=== PATIENT | female | born 1975 | race African-American/Black ===

== ENCOUNTER 2019-10-12 22:17 | Inpatient (IN) | payer OTHER ==
[~2019-10-12] VITALS: Ht 175.3 cm; Wt 71.7 kg
[2019-10-12 22:45] VITALS: BP 130/80
[2019-10-12] MEDS ORDERED: Morphine Sulfate 4mg/ml Inj (IV USE ONLY) IVP ONE (22:45)
[2019-10-12 23:25] LABS: ANION GAP 8 mmol/L (5-15); BLOOD UREA NITROGEN 13 mg/dL (7-18); CALCIUM 8.8 MG/DL (8.5-10.1); CARBON DIOXIDE 25 MMOL/L (21-32); CHLORIDE 104 MMOL/L (98-107); CREATININE 1.1 MG/DL (0.55-1.30); HEMATOCRIT 37.8 % (37.0-47.0); HEMOGLOBIN 12.2 G/DL (12.0-16.0); MEAN CORPUSCULAR VOLUME 100 FL (80-99); PLATELET COUNT 211 K/UL (150-450); POTASSIUM 4.5 MMOL/L (3.5-5.1); RED BLOOD COUNT 3.78 M/UL (4.20-5.40); RED CELL DISTRIBUTION WIDTH 12.3 % (11.6-14.8); SODIUM 137 MMOL/L (136-145); WHITE BLOOD COUNT 15.3 K/UL (4.8-10.8)
[2019-10-12 23:32] LABS: ALANINE AMINOTRANSFERASE 22 U/L (12-78); ALBUMIN 3.7 G/DL (3.4-5.0); ALKALINE PHOSPHATASE 36 U/L (46-116); ASPARTATE AMINO TRANSFERASE 17 U/L (15-37); BILIRUBIN,TOTAL 0.6 MG/DL (0.2-1.0)
--- NOTE | 2019-10-12 23:51 | Emergency Room Report ---
History of Present Illness General Chief Complaint: Abdominal Pain Source: Patient Present Illness HPI 44-year-old female presents with abdominal pain. Status post uterine artery embolization today. Pain is throbbing, 10 out of 10, nonradiating. Notes nausea, denies vomiting. Denies fevers or chills. Denies any diarrhea. States that she did test positive for COVID antibody in August. Has not had symptoms since. Denies fevers or chills or cough. No other aggravating relieving factors. Denies any other associated symptoms Allergies: Coded Allergies: No Known Allergies (Unverified , 10/12/19) COVID-19 Screening Contact w/high risk pt: No Recent Travel to affected area: No Experienced COVID-19 symptoms?: No COVID-19 Testing performed RECREATIONAL SPECIALIST: Yes COVID-19 Screening: Positive COVID-19 COVID-19 Testing Source: 09/05 positive antibody Patient History Past Medical History: none Past Surgical History: none Pertinent Family History: none Social History: Denies: smoking, alcohol use, drug use Now: No : 0 Para: 0 Immunizations: UTD Reviewed Nursing Documentation: PMH: Agreed; PSxH: Agreed Nursing Documentation-PMH Past Medical History: No Stated History Review of Systems All Other Systems: negative except mentioned in HPI Physical Exam Vital Signs Date Time Temp Pulse Resp B/P (MAP) Pulse Ox O2 Delivery O2 Flow Rate FiO2 10/12/19 22:42 98.8 63 18 130/80 (97) 98 Room Air Sp02 EP Interpretation: reviewed, normal General Appearance: no apparent distress, alert, GCS 15, non-toxic Head: normocephalic, atraumatic Eyes: bilateral eye normal inspection, bilateral eye PERRL ENT: hearing grossly normal, normal pharynx, no angioedema, normal voice Neck: full range of motion, supple/symm/no masses Respiratory: chest non-tender, lungs clear, normal breath sounds, speaking full sentences Cardiovascular #1: regular rate, rhythm, no edema Cardiovascular #2: 2+ carotid (R), 2+ carotid (L), 2+ radial (R), 2+ radial (L) , 2+ dorsalis pedis (R), 2+ dorsalis pedis (L) Gastrointestinal: normal bowel sounds, soft, non-distended, no guarding, no rebound, tenderness Rectal: deferred Genitourinary: normal inspection, no CVA tenderness Musculoskeletal: back normal, normal range of motion, gait/station normal, non- tender Neurologic: alert, motor strength/tone normal, oriented x3, sensory intact, responsive, speech normal Psychiatric: judgement/insight normal, memory normal, mood/affect normal, no suicidal/homicidal ideation Reflexes: 3+ bicep (R), 3+ bicep (L), 3+ tricep (R), 3+ tricep (L), 3+ knee (R) , 3+ knee (L) Skin: other - see nursing skin note Lymphatic: no adenopathy Medical Decision Making Diagnostic Impression: Primary Impression: Postoperative pain Additional Impression: Status post embolization of uterine artery ER Course Hospital Course 44-year-old female presents to ED with abd pain. s/p uterine artery embolization Differential diagnoses include: postoperative pain, chronic pain, peritoneal signs Clinical course Patient placed on stretcher. In isolation. handyman. After initial history and physical I ordered labs, IV fluids, UA, pain medication and CT scan Labs - noted leukocytosis, Hb/Hct stable. electrolytes ok Pain improved after medication. Abdomen soft with no guarding. Case discussed with Dr. Bernabe and he agreed to accept the patient to his service for further care and support Dr Oshea will consult I feel this is a highly complex case requiring extensive working including EKG/ Rhythm strip, Xray/CT/US, Blood/urine lab work, repeat exams while in ED, and administration of strong opiates/narcotics for pain control, admission to hospital or close patient follow up. Diagnosis -postoperative pain, status post embolization of uterine artery Patient admitted to floor in serious condition Labs Test 10/12/19 23:00 White Blood Count 15.3 K/UL (4.8-10.8) Red Blood Count 3.78 M/UL (4.20-5.40) Hemoglobin 12.2 G/DL (12.0-16.0) Hematocrit 37.8 % (37.0-47.0) Mean Corpuscular Volume 100 FL (80-99) Mean Corpuscular Hemoglobin 32.4 PG (27.0-31.0) Mean Corpuscular Hemoglobin Concent 32.3 G/DL (32.0-36.0) Red Cell Distribution Width 12.3 % (11.6-14.8) Platelet Count 211 K/UL (150-450) Mean Platelet Volume 9.0 FL (6.5-10.1) Neutrophils (%) (Auto) % (45.0-75.0) Lymphocytes (%) (Auto) % (20.0-45.0) Monocytes (%) (Auto) % (1.0-10.0) Eosinophils (%) (Auto) % (0.0-3.0) Basophils (%) (Auto) % (0.0-2.0) Sodium Level 137 MMOL/L (136-145) Potassium Level 4.5 MMOL/L (3.5-5.1) Chloride Level 104 MMOL/L (98-107) Carbon Dioxide Level 25 MMOL/L (21-32) Anion Gap 8 mmol/L (5-15) Blood Urea Nitrogen 13 mg/dL (7-18) Creatinine 1.1 MG/DL (0.55-1.30) Estimat Glomerular Filtration Rate > 60 mL/min (>60) Glucose Level 137 MG/DL (74-106) Calcium Level 8.8 MG/DL (8.5-10.1) Total Bilirubin 0.6 MG/DL (0.2-1.0) Aspartate Amino Transf (AST/SGOT) 17 U/L (15-37) Alanine Aminotransferase (ALT/SGPT) 22 U/L (12-78) Alkaline Phosphatase 36 U/L (46-116) Total Protein 7.4 G/DL (6.4-8.2) Albumin 3.7 G/DL (3.4-5.0) Globulin 3.7 g/dL Albumin/Globulin Ratio 1.0 (1.0-2.7) Lipase 169 U/L (73-393) Last Vital Signs Date Time Temp Pulse Resp B/P (MAP) Pulse Ox O2 Delivery O2 Flow Rate FiO2 10/12/19 22:42 98.8 63 18 130/80 (97) 98 Room Air Status: improved Disposition: ADMITTED INPATIENT Condition: Serious Referrals: NON PHYSICIAN (PCP) Frederic Latham MD Oct 12, 2019 23:51
[2019-10-13] VITALS: BP 144/75
[2019-10-13] MEDS ORDERED: HYDROmorphone 1mg/ml Carpuject IVP PRN (00:45)
[2019-10-13] MEDS ORDERED: Potassium Chloride 20 MEQ in Dextrose 5%/Lactated Ringer's 1,000 ML IV SCH (03:00)
[2019-10-13] MEDS: ceFAZolin sod 1 GM in D5W 55 ML IVPB SCH ×3 (03:45→18:22)
[2019-10-13 04:00] VITALS: BP 98/47
[2019-10-13] MEDS ORDERED: AUGMENTIN 875-1 EAC1 ORAL (04:09)
[2019-10-13] MEDS ORDERED: TRAMADOL HCL50 MG ORAL (04:09)
[2019-10-13] MEDS ORDERED: ZOFRAN ODT8 MG ORAL (04:09)
[2019-10-13] MEDS ORDERED: PERCOCET1 TAB ORAL (04:09)
[2019-10-13 05:31] LABS: BASOPHILS % (AUTO) 0.3 % (0.0-2.0); EOSINOPHILS % (AUTO) 0.1 % (0.0-3.0); HEMATOCRIT 34.7 % (37.0-47.0); LYMPHOCYTES % (AUTO) 11.4 % (20.0-45.0); MEAN CORPUSCULAR VOLUME 101 FL (80-99); MONOCYTES % (AUTO) 4.9 % (1.0-10.0); NEUTROPHILS % (AUTO) 83.3 % (45.0-75.0); PLATELET COUNT 226 K/UL (150-450); RED BLOOD COUNT 3.44 M/UL (4.20-5.40); RED CELL DISTRIBUTION WIDTH 12.6 % (11.6-14.8); WHITE BLOOD COUNT 13.4 K/UL (4.8-10.8)
[2019-10-13 05:55] LABS: ALANINE AMINOTRANSFERASE 19 U/L (12-78); ALBUMIN/GLOBULIN RATIO 0.9 (1.0-2.7); ALKALINE PHOSPHATASE 29 U/L (46-116); ANION GAP 10 mmol/L (5-15); ASPARTATE AMINO TRANSFERASE 19 U/L (15-37); BILIRUBIN,TOTAL 0.7 MG/DL (0.2-1.0); BLOOD UREA NITROGEN 13 mg/dL (7-18); CALCIUM 7.9 MG/DL (8.5-10.1); CARBON DIOXIDE 25 MMOL/L (21-32); CHLORIDE 105 MMOL/L (98-107); CREATININE 0.9 MG/DL (0.55-1.30); POTASSIUM 4.2 MMOL/L (3.5-5.1); SODIUM 139 MMOL/L (136-145)
[2019-10-13 07:51] LABS: APPEARANCE,URINE CLEAR; BILIRUBIN, URINE NEGATIVE (NEGATIVE); GLUCOSE, URINE (UA) NEGATIVE (NEGATIVE); KETONES,URINE 3+ (NEGATIVE); LEUKOCYTE ESTERASE ,URINE NEGATIVE (NEGATIVE); NITRITE,URINE NEGATIVE (NEGATIVE); PH,URINE 5 (4.5-8.0); PROTEIN,URINE 1+ (NEGATIVE); UROBILINOGEN,URINE NORMAL MG/DL (0.0-1.0)
[2019-10-13 07:52] LABS: COLOR,URINE YELLOW
[2019-10-13 08:00] VITALS: BP 95/65
[2019-10-13] MEDS: Docusate 100mg cap ORAL SCH ×2 (10:59→18:22)
[2019-10-13] MEDS: Milk of Magnesia 30ml Ud ORAL SCH (11:15)
[2019-10-13 12:00] VITALS: BP 106/57
--- NOTE | 2019-10-13 12:41 | General Surgery Progress Note ---
General Surgery-Progress Note Subjective Day of Surgery: october 11 Procedure Performed uterine fibroid embolization Symptoms: improved, tolerating diet, voiding well, pain decreased Objective Last 24 Hour Vital Signs Date Time Temp Pulse Resp B/P (MAP) Pulse Ox O2 Delivery O2 Flow Rate FiO2 10/13/19 12:00 98.9 60 18 106/57 (73) 95 10/13/19 09:00 Room Air 10/13/19 08:18 98.2 10/13/19 08:00 98.2 61 18 95/65 (75) 95 10/13/19 04:00 98.1 63 17 98/47 (64) 95 10/13/19 01:48 Room Air 10/13/19 00:10 98.8 63 18 130/80 98 Room Air 10/13/19 00:00 98.0 71 18 144/75 (98) 99 10/12/19 23:30 98.8 10/12/19 22:45 63 18 Room Air 10/12/19 22:45 98.8 63 18 130/80 98 Room Air 10/12/19 22:42 98.8 63 18 130/80 (97) 98 Room Air I&O Intake and Output 10/12/19 10/13/19 19:00 07:00 Intake Total 240 ml Balance 240 ml Intake Oral 240 ml # Voids 1 Dressing: dry Wound: clean Drains: none Cardiovascular: RSR Respiratory: clear Abdomen: soft, flat, scaphoid, tenderness, present bowel sounds Laboratory Tests Test 10/12/19 23:00 10/13/19 04:35 10/13/19 07:25 White Blood Count 15.3 K/UL (4.8-10.8) H 13.4 K/UL (4.8-10.8) H Red Blood Count 3.78 M/UL (4.20-5.40) L 3.44 M/UL (4.20-5.40) L Hemoglobin 12.2 G/DL (12.0-16.0) 11.0 G/DL (12.0-16.0) L Hematocrit 37.8 % (37.0-47.0) 34.7 % (37.0-47.0) L Mean Corpuscular Volume 100 FL (80-99) H 101 FL (80-99) H Mean Corpuscular Hemoglobin 32.4 PG (27.0-31.0) H 32.0 PG (27.0-31.0) H Mean Corpuscular Hemoglobin Concent 32.3 G/DL (32.0-36.0) 31.7 G/DL (32.0-36.0) L Red Cell Distribution Width 12.3 % (11.6-14.8) 12.6 % (11.6-14.8) Platelet Count 211 K/UL (150-450) 226 K/UL (150-450) Mean Platelet Volume 9.0 FL (6.5-10.1) 9.5 FL (6.5-10.1) Neutrophils (%) (Auto) % (45.0-75.0) 83.3 % (45.0-75.0) H Lymphocytes (%) (Auto) % (20.0-45.0) 11.4 % (20.0-45.0) L Monocytes (%) (Auto) % (1.0-10.0) 4.9 % (1.0-10.0) Eosinophils (%) (Auto) % (0.0-3.0) 0.1 % (0.0-3.0) Basophils (%) (Auto) % (0.0-2.0) 0.3 % (0.0-2.0) Sodium Level 137 MMOL/L (136-145) 139 MMOL/L (136-145) Potassium Level 4.5 MMOL/L (3.5-5.1) 4.2 MMOL/L (3.5-5.1) Chloride Level 104 MMOL/L (98-107) 105 MMOL/L (98-107) Carbon Dioxide Level 25 MMOL/L (21-32) 25 MMOL/L (21-32) Anion Gap 8 mmol/L (5-15) 10 mmol/L (5-15) Blood Urea Nitrogen 13 mg/dL (7-18) 13 mg/dL (7-18) Creatinine 1.1 MG/DL (0.55-1.30) 0.9 MG/DL (0.55-1.30) Estimat Glomerular Filtration Rate > 60 mL/min (>60) > 60 mL/min (>60) Glucose Level 137 MG/DL (74-106) H 102 MG/DL (74-106) Calcium Level 8.8 MG/DL (8.5-10.1) 7.9 MG/DL (8.5-10.1) L Total Bilirubin 0.6 MG/DL (0.2-1.0) 0.7 MG/DL (0.2-1.0) Aspartate Amino Transf (AST/SGOT) 17 U/L (15-37) 19 U/L (15-37) Alanine Aminotransferase (ALT/SGPT) 22 U/L (12-78) 19 U/L (12-78) Alkaline Phosphatase 36 U/L (46-116) L 29 U/L (46-116) L Total Protein 7.4 G/DL (6.4-8.2) 6.2 G/DL (6.4-8.2) L Albumin 3.7 G/DL (3.4-5.0) 3.0 G/DL (3.4-5.0) L Globulin 3.7 g/dL 3.2 g/dL Albumin/Globulin Ratio 1.0 (1.0-2.7) 0.9 (1.0-2.7) L Lipase 169 U/L (73-393) Urine Color Yellow Urine Appearance Clear Urine pH 5 (4.5-8.0) Urine Specific [place] 1.025 (1.005-1.035) Urine Protein 1+ (NEGATIVE) H Urine Glucose (UA) Negative (NEGATIVE) Urine Ketones 3+ (NEGATIVE) H Urine Blood 1+ (NEGATIVE) H Urine Nitrite Negative (NEGATIVE) Urine Bilirubin Negative (NEGATIVE) Urine Urobilinogen Normal MG/DL (0.0-1.0) Urine Leukocyte Esterase Negative (NEGATIVE) Urine RBC 0-2 /HPF (0 - 2) Urine WBC 0-2 /HPF (0 - 2) Urine Squamous Epithelial Cells Few /LPF (NONE/OCC) Urine Bacteria Few /HPF (NONE) Urine Mucus Moderate /LPF (NONE/OCC) H Urine HCG, Qualitative Negative (NEGATIVE) Additional Comments labs normal. Plan Additional Comments anticipate transition to oral analgesics this pm or tomorrow. ambulate, laxatives. Justino Oshea MD Oct 13, 2019 12:41
--- NOTE | 2019-10-13 13:09 | History and Physical ---
Forrest Perla WHITE SUGAR PAN TANK OPERATOR 10/13/19 1309: History of Present Illness General Date patient seen: Oct 13, 2019 Time patient seen: 12:30 Reason for Hospitalization: Abdominal Pain Present Illness HPI 44 years old female with past medical history of uterine fibroids, status post uterine artery embolization 10/11 , presented to emergency department due to intractable abdominal pain. Pain described as 10 out of 10, nonradiating and of throbbing quality . She denied nausea, vomiting, diarrhea. No fever or chills. She had positive COVID antibody in August , but had no symptoms since that. No fever or chills. No cough. Upon evaluation vital signs were stable. Laboratory work-up revealed leukocytosis WBC 15.3, hemoglobin 12.2, hematocrit 37.8, platelet count 211. Stable electrolytes. BUN 13, creatinine 1.1. Glucose 137. Stable LFT and lipase. Patient admitted for intractable abdominal pain for further management Allergies: Coded Allergies: No Known Allergies (Unverified , 10/12/19) COVID-19 Screening Contact w/high risk pt: No Recent Travel to affected area: No Experienced COVID-19 symptoms?: No Medication History Scheduled Amoxicillin/Potassium Clav 875-125* (Augmentin 875-125 Tablet*), 1 TAB ORAL TWICE A DAY, (Reported) Scheduled PRN Ondansetron Odt* (Zofran Odt*), 4 MG ORAL Q6H PRN for Nausea & Vomiting, ( Reported) Oxycodone/Acetaminophen (Oxycodone-Acetaminophen 5-325), 1 TAB ORAL Q4H PRN for Severe Pain (Pain Scale 7-10), (Reported) Tramadol Hcl* (Ultram*), 50 MG ORAL Q4HR PRN for For Pain, (Reported) Patient History History Provided By: Patient Healthcare decision maker Resuscitation status Full code Advanced Directive on File Review of Systems Constitutional: Reports: no symptoms Eye: Reports: no symptoms ENT: Reports: no symptoms Respiratory: Reports: no symptoms Cardiovascular: Reports: no symptoms Gastrointestinal: Reports: no symptoms Genitourinary: Reports: see HPI Musculoskeletal: Reports: no symptoms Skin: Reports: no symptoms Psychiatric: Reports: no symptoms Neurological: Reports: no symptoms Endocrine: Reports: no symptoms Hematologic/Lymphatic: Reports: no symptoms Physical Exam General Appearance: no apparent distress, alert - awake, oriented x 3 Lines, tubes and drains: peripheral HEENT: normocephalic, atraumatic, anicteric, mucous membranes moist, PERRL Neck: non-tender, supple Respiratory/Chest: lungs clear, normal breath sounds, no respiratory distress, no accessory muscle use Cardiovascular/Chest: normal peripheral pulses, normal rate, no JVD Abdomen: normal bowel sounds, soft - ,ild tenderness on palpation R lower abdomen, no rebound, no guarding Extremities: normal range of motion, non-tender, no calf tenderness, normal capillary refill Skin Exam: warm/dry Neurologic: no motor/sensory deficits, alert Musculoskeletal: normal muscle bulk Last 24 Hour Vital Signs Date Time Temp Pulse Resp B/P (MAP) Pulse Ox O2 Delivery O2 Flow Rate FiO2 10/13/19 12:00 98.9 60 18 106/57 (73) 95 10/13/19 09:00 Room Air 10/13/19 08:18 98.2 10/13/19 08:00 98.2 61 18 95/65 (75) 95 10/13/19 04:00 98.1 63 17 98/47 (64) 95 10/13/19 01:48 Room Air 10/13/19 00:10 98.8 63 18 130/80 98 Room Air 10/13/19 00:00 98.0 71 18 144/75 (98) 99 10/12/19 23:30 98.8 10/12/19 22:45 63 18 Room Air 10/12/19 22:45 98.8 63 18 130/80 98 Room Air 10/12/19 22:42 98.8 63 18 130/80 (97) 98 Room Air Intake and Output 10/12/19 10/13/19 19:00 07:00 Intake Total 240 ml Balance 240 ml Intake Oral 240 ml # Voids 1 Laboratory Tests Test 10/12/19 23:00 10/13/19 04:35 10/13/19 07:25 White Blood Count 15.3 K/UL (4.8-10.8) H 13.4 K/UL (4.8-10.8) H Red Blood Count 3.78 M/UL (4.20-5.40) L 3.44 M/UL (4.20-5.40) L Hemoglobin 12.2 G/DL (12.0-16.0) 11.0 G/DL (12.0-16.0) L Hematocrit 37.8 % (37.0-47.0) 34.7 % (37.0-47.0) L Mean Corpuscular Volume 100 FL (80-99) H 101 FL (80-99) H Mean Corpuscular Hemoglobin 32.4 PG (27.0-31.0) H 32.0 PG (27.0-31.0) H Mean Corpuscular Hemoglobin Concent 32.3 G/DL (32.0-36.0) 31.7 G/DL (32.0-36.0) L Red Cell Distribution Width 12.3 % (11.6-14.8) 12.6 % (11.6-14.8) Platelet Count 211 K/UL (150-450) 226 K/UL (150-450) Mean Platelet Volume 9.0 FL (6.5-10.1) 9.5 FL (6.5-10.1) Neutrophils (%) (Auto) % (45.0-75.0) 83.3 % (45.0-75.0) H Lymphocytes (%) (Auto) % (20.0-45.0) 11.4 % (20.0-45.0) L Monocytes (%) (Auto) % (1.0-10.0) 4.9 % (1.0-10.0) Eosinophils (%) (Auto) % (0.0-3.0) 0.1 % (0.0-3.0) Basophils (%) (Auto) % (0.0-2.0) 0.3 % (0.0-2.0) Sodium Level 137 MMOL/L (136-145) 139 MMOL/L (136-145) Potassium Level 4.5 MMOL/L (3.5-5.1) 4.2 MMOL/L (3.5-5.1) Chloride Level 104 MMOL/L (98-107) 105 MMOL/L (98-107) Carbon Dioxide Level 25 MMOL/L (21-32) 25 MMOL/L (21-32) Anion Gap 8 mmol/L (5-15) 10 mmol/L (5-15) Blood Urea Nitrogen 13 mg/dL (7-18) 13 mg/dL (7-18) Creatinine 1.1 MG/DL (0.55-1.30) 0.9 MG/DL (0.55-1.30) Estimat Glomerular Filtration Rate > 60 mL/min (>60) > 60 mL/min (>60) Glucose Level 137 MG/DL (74-106) H 102 MG/DL (74-106) Calcium Level 8.8 MG/DL (8.5-10.1) 7.9 MG/DL (8.5-10.1) L Total Bilirubin 0.6 MG/DL (0.2-1.0) 0.7 MG/DL (0.2-1.0) Aspartate Amino Transf (AST/SGOT) 17 U/L (15-37) 19 U/L (15-37) Alanine Aminotransferase (ALT/SGPT) 22 U/L (12-78) 19 U/L (12-78) Alkaline Phosphatase 36 U/L (46-116) L 29 U/L (46-116) L Total Protein 7.4 G/DL (6.4-8.2) 6.2 G/DL (6.4-8.2) L Albumin 3.7 G/DL (3.4-5.0) 3.0 G/DL (3.4-5.0) L Globulin 3.7 g/dL 3.2 g/dL Albumin/Globulin Ratio 1.0 (1.0-2.7) 0.9 (1.0-2.7) L Lipase 169 U/L (73-393) Urine Color Yellow Urine Appearance Clear Urine pH 5 (4.5-8.0) Urine Specific [place] 1.025 (1.005-1.035) Urine Protein 1+ (NEGATIVE) H Urine Glucose (UA) Negative (NEGATIVE) Urine Ketones 3+ (NEGATIVE) H Urine Blood 1+ (NEGATIVE) H Urine Nitrite Negative (NEGATIVE) Urine Bilirubin Negative (NEGATIVE) Urine Urobilinogen Normal MG/DL (0.0-1.0) Urine Leukocyte Esterase Negative (NEGATIVE) Urine RBC 0-2 /HPF (0 - 2) Urine WBC 0-2 /HPF (0 - 2) Urine Squamous Epithelial Cells Few /LPF (NONE/OCC) Urine Bacteria Few /HPF (NONE) Urine Mucus Moderate /LPF (NONE/OCC) H Urine HCG, Qualitative Negative (NEGATIVE) Height (Feet): 5 Height (Inches): 9.00 Weight (Pounds): 158 Medications Current Medications Medications (Trade) Dose Ordered Sig/Katelynn Route PRN Reason Start Time Stop Time Status Last Admin Dose Admin Acetaminophen (Tylenol) 650 mg Q6H PRN ORAL Fever >100.4 10/13/19 01:45 11/12/19 01:44 Cefazolin Sodium 1 gm/Dextrose 55 ml @ 110 mls/hr Q8H IVPB 10/13/19 03:00 10/20/19 02:59 10/13/19 10:59 Docusate Sodium (Colace) 100 mg TWICE A DAY ORAL 10/13/19 11:00 11/12/19 10:59 10/13/19 10:59 Hydromorphone HCl (Dilaudid) 1 mg EVERY 3 HOURS PRN IVP MILD PAIN (1-3) 10/13/19 00:45 10/20/19 00:44 Hydromorphone HCl (Dilaudid) 2 mg Q3H PRN IVP SEVERE PAIN (7-10) 10/13/19 00:45 10/20/19 00:44 10/13/19 07:48 Hydromorphone HCl (Dilaudid) 2 mg Q3H PRN IVP Moderate pain (4-6) 10/13/19 01:45 10/20/19 01:44 Magnesium Hydroxide (Mom) 30 ml DAILY ORAL 10/13/19 11:15 11/12/19 11:14 Ondansetron HCl (Zofran) 4 mg Q6H PRN IVP Nausea & Vomiting 10/13/19 00:45 11/12/19 00:44 Oxycodone/ Acetaminophen (Percocet 10/325) 1 tab Q4H PRN ORAL Moderate Pain (Pain Scale 4-6) 10/13/19 11:16 10/20/19 11:15 Potassium Chloride 20 meq/ Dextrose/Lactated Ringer's 1,010 ml @ 150 mls/hr Q6H44M IV 10/13/19 03:00 11/12/19 02:59 10/13/19 08:00 Senna/Docusate Sodium (Dolores-Colace) 1 tab TWICE A DAY ORAL 10/13/19 18:00 11/12/19 17:59 Assessment/Plan Assessment/Plan: ASSESSMENT Postoperative pain s/p uterine artery embolization Uterine fibroids Leukocytosis PLAN OF CARE MS floor IVF pain management empiric abx trend WBC-trending down, remains afebrile CL diet, tolerates, advance to soft diet decrease IVF rate and dc when tolerates diet a/emetic prn OOB as tolerated, IS at the bedside bowel regimen supportive care case discussed and evaluated by supervising physician Lenard Bernabe MD 10/13/19 1515: History of Present Illness General Reason for Hospitalization: Abdominal Pain Present Illness Allergies: Coded Allergies: No Known Allergies (Unverified , 10/12/19) Medication History Scheduled Amoxicillin/Potassium Clav 875-125* (Augmentin 875-125 Tablet*), 1 TAB ORAL TWICE A DAY, (Reported) Scheduled PRN Ondansetron Odt* (Zofran Odt*), 4 MG ORAL Q6H PRN for Nausea & Vomiting, ( Reported) Oxycodone/Acetaminophen (Oxycodone-Acetaminophen 5-325), 1 TAB ORAL Q4H PRN for Severe Pain (Pain Scale 7-10), (Reported) Tramadol Hcl* (Ultram*), 50 MG ORAL Q4HR PRN for For Pain, (Reported) Assessment/Plan Assessment/Plan: Patient seen and examined with WHITE SUGAR PAN TANK OPERATOR. Agree with above A&P as it reflects our joint deliberations. POD1 S/P UFE a/w intractable pain, NV and inability to tolerate PO Pain control/supportive care/anti-emetic therapy/Abx/IS/OOB/DVT Px/WEIGHT LOSS CONSULTANT recs/ dispo planning Perla Clayton NP Oct 13, 2019 13:09 Lenard Bernabe MD Oct 13, 2019 15:15
[2019-10-13] MEDS: Potassium Chloride 20 MEQ in Dextrose 5%/Lactated Ringer's 1,000 ML IV SCH ×2 (14:02→20:50)
[2019-10-13 16:00] VITALS: BP 103/64
[2019-10-13] MEDS: Docusate Sod/Senna tab ORAL SCH (18:22)
[2019-10-13 20:00] VITALS: BP 110/61
[2019-10-14] VITALS: BP 124/74
[2019-10-14 04:00] VITALS: BP 100/63
[2019-10-14] MEDS: ceFAZolin sod 1 GM in D5W 55 ML IVPB SCH (04:00)
[2019-10-14 06:37] LABS: BASOPHILS % (AUTO) 0.9 % (0.0-2.0); HEMATOCRIT 34.2 % (37.0-47.0); HEMOGLOBIN 10.9 G/DL (12.0-16.0); LYMPHOCYTES % (AUTO) 18.8 % (20.0-45.0); MEAN CORPUSCULAR VOLUME 101 FL (80-99); MONOCYTES % (AUTO) 7.6 % (1.0-10.0); NEUTROPHILS % (AUTO) 69.7 % (45.0-75.0); PLATELET COUNT 194 K/UL (150-450); RED BLOOD COUNT 3.38 M/UL (4.20-5.40); RED CELL DISTRIBUTION WIDTH 12.6 % (11.6-14.8); WHITE BLOOD COUNT 11.9 K/UL (4.8-10.8)
[2019-10-14 06:47] LABS: ALANINE AMINOTRANSFERASE 15 U/L (12-78); ALBUMIN 2.8 G/DL (3.4-5.0); ALBUMIN/GLOBULIN RATIO 0.8 (1.0-2.7); ALKALINE PHOSPHATASE 30 U/L (46-116); ANION GAP 5 mmol/L (5-15); ASPARTATE AMINO TRANSFERASE 20 U/L (15-37); BILIRUBIN,TOTAL 0.5 MG/DL (0.2-1.0); BLOOD UREA NITROGEN 10 mg/dL (7-18); CARBON DIOXIDE 27 MMOL/L (21-32); CHLORIDE 106 MMOL/L (98-107); POTASSIUM 3.9 MMOL/L (3.5-5.1); SODIUM 138 MMOL/L (136-145)
[2019-10-14 08:00] VITALS: BP 130/81
[2019-10-14] MEDS: Docusate Sod/Senna tab ORAL SCH (08:06)
[2019-10-14] MEDS: Docusate 100mg cap ORAL SCH (08:07)
[2019-10-14] MEDS: Milk of Magnesia 30ml Ud ORAL SCH (08:07)
[2019-10-14] MEDS ORDERED: Iron Sucrose 100 MG in NS 55 ML IV SCH (09:00)
--- NOTE | 2019-10-14 09:52 | Pulmonology Progress Note ---
Subjective Allergies: Coded Allergies: No Known Allergies (Unverified , 10/12/19) Subjective remains afebrile WBC down to 11.9 denies pain tolerates diet no BM yet Objective Last 24 Hour Vital Signs Date Time Temp Pulse Resp B/P (MAP) Pulse Ox O2 Delivery O2 Flow Rate FiO2 10/14/19 09:00 Room Air 10/14/19 08:37 98.2 10/14/19 08:00 98.1 60 18 130/81 (97) 96 10/14/19 04:00 98.2 56 18 100/63 (75) 95 10/14/19 00:00 98.6 87 16 124/74 (91) 97 10/13/19 21:00 Room Air 10/13/19 20:00 98.4 57 16 110/61 (77) 97 10/13/19 17:24 98.9 10/13/19 16:00 99.1 57 18 103/64 (77) 97 10/13/19 12:00 98.9 60 18 106/57 (73) 95 Intake and Output 10/13/19 10/14/19 19:00 07:00 Intake Total 400 ml 360 ml Balance 400 ml 360 ml Intake Oral 400 ml 360 ml # Voids 2 3 Objective General Appearance: no apparent distress, alert - awake, oriented x 3 Lines, tubes and drains: peripheral HEENT: normocephalic, atraumatic, anicteric, mucous membranes moist, PERRL Neck: non-tender, supple Respiratory/Chest: lungs clear, normal breath sounds, no respiratory distress, no accessory muscle use Cardiovascular/Chest: normal peripheral pulses, normal rate, no JVD Abdomen: normal bowel sounds, soft - ,ild tenderness on palpation R lower abdomen, no rebound, no guarding Extremities: normal range of motion, non-tender, no calf tenderness, normal capillary refill Skin Exam: warm/dry Neurologic: no motor/sensory deficits, alert Musculoskeletal: normal muscle bulk Laboratory Tests 10/14/19 05:30: White Blood Count 11.9H, Red Blood Count 3.38L, Hemoglobin 10.9L, Hematocrit 34.2L, Mean Corpuscular Volume 101H, Mean Corpuscular Hemoglobin 32.3H, Mean Corpuscular Hemoglobin Concent 31.9L, Red Cell Distribution Width 12.6, Platelet Count 194, Mean Platelet Volume 9.2, Neutrophils (%) (Auto) 69.7, Lymphocytes (%) (Auto) 18.8L, Monocytes (%) (Auto) 7.6, Eosinophils (%) (Auto) 3.0, Basophils (%) (Auto) 0.9, Sodium Level 138, Potassium Level 3.9, Chloride Level 106, Carbon Dioxide Level 27, Anion Gap 5, Blood Urea Nitrogen 10, Creatinine 1.0, Estimat Glomerular Filtration Rate > 60, Glucose Level 91, Calcium Level 8.0L, Total Bilirubin 0.5, Aspartate Amino Transf (AST/SGOT) 20, Alanine Aminotransferase (ALT/SGPT) 15, Alkaline Phosphatase 30L, Total Protein 6.1L, Albumin 2.8L, Globulin 3.3, Albumin/Globulin Ratio 0.8L Current Medications Medications (Trade) Dose Ordered Sig/Katelynn Route PRN Reason Start Time Stop Time Status Last Admin Dose Admin Acetaminophen (Tylenol) 650 mg Q6H PRN ORAL Fever >100.4 10/13/19 01:45 11/12/19 01:44 Cefazolin Sodium 1 gm/Dextrose 55 ml @ 110 mls/hr Q8H IVPB 10/13/19 03:00 10/20/19 02:59 10/14/19 04:00 Docusate Sodium (Colace) 100 mg TWICE A DAY ORAL 10/13/19 11:00 11/12/19 10:59 10/14/19 08:07 Hydromorphone HCl (Dilaudid) 1 mg EVERY 3 HOURS PRN IVP MILD PAIN (1-3) 10/13/19 00:45 10/20/19 00:44 Hydromorphone HCl (Dilaudid) 2 mg Q3H PRN IVP SEVERE PAIN (7-10) 10/13/19 00:45 10/20/19 00:44 10/13/19 16:54 Hydromorphone HCl (Dilaudid) 2 mg Q3H PRN IVP Moderate pain (4-6) 10/13/19 01:45 10/20/19 01:44 10/14/19 00:05 Iron Sucrose 100 mg/Sodium Chloride 60 ml @ 240 mls/hr ONCE IV 10/14/19 09:00 10/14/19 11:00 10/14/19 09:23 Magnesium Hydroxide (Mom) 30 ml DAILY ORAL 10/13/19 11:15 11/12/19 11:14 10/14/19 08:07 Ondansetron HCl (Zofran) 4 mg Q6H PRN IVP Nausea & Vomiting 10/13/19 00:45 11/12/19 00:44 Oxycodone/ Acetaminophen (Percocet 10/325) 1 tab Q4H PRN ORAL Moderate Pain (Pain Scale 4-6) 10/13/19 11:16 10/20/19 11:15 10/14/19 08:07 Senna/Docusate Sodium (Dolores-Colace) 1 tab TWICE A DAY ORAL 10/13/19 18:00 11/12/19 17:59 10/14/19 08:06 Assessment/Plan Assessment/Plan ASSESSMENT Postoperative pain s/p uterine artery embolization Uterine fibroids Leukocytosis PLAN OF CARE MS floor IVF -dc pain management-controlled , comfortable empiric abx trend WBC-trending down, WBC 11.9 today remains afebrile CL diet, tolerates, advance to soft diet a/emetic prn tolerates diet OOB as tolerated, ambulated in the room and to the bathroom voided w/out difficulties IS at the bedside bowel regimen supportive care dc today dc instructions provided, dc medications ( given at out surgery center) reviewed case discussed and evaluated by supervising physician Perla Clayton NP Oct 14, 2019 09:52
--- NOTE | 2019-10-16 11:12 | Discharge Summary ---
Discharge Summary Discharge Summary _ DATE OF ADMISSION: 10/12/2019 DATE OF DISCHARGE: 10/14/2019 DISCHARGED BY: REASON FOR ADMISSION: 44 years old female with past medical history of uterine fibroids, status post uterine artery embolization 10/11 , presented to emergency department due to intractable abdominal pain. Pain described as 10 out of 10, nonradiating and of throbbing quality . She denied nausea, vomiting, diarrhea. No fever or chills. She had positive COVID antibody in August , but had no symptoms since that. No fever or chills. No cough. Upon evaluation vital signs were stable. Laboratory work-up revealed leukocytosis WBC 15.3, hemoglobin 12.2, hematocrit 37.8, platelet count 211. Stable electrolytes. BUN 13, creatinine 1.1. Glucose 137. Stable LFT and lipase. Patient admitted for intractable abdominal pain for further management CONSULTANTS: [employer] surgeon Dr. Oshea [facility] H[facility]PITAL COURSE: Patient admitted to [facility] surgical floor. Patient was provided with IV fluids and empiric antibiotics. Patient is restarted on clear liquid diet. Pain management was addressed, and pain was eventually controlled. Leukocytosis trending down, and prior to discharge 11.9. Patient remained afebrile. Leukocytosis was likely reactive due to surgery. Diet was advanced to soft. Patient was able to tolerate diet. Antiemetic were on board as needed. Patient was ambulated in the room and to the bathroom. Patient used incentive spirometry while at the bed. Patient voided without difficulties. Bowel regimen instituted. Supportive care provided. Patient clinically stabilized and was ready for discharge. Discharge instruction provided. Discharge medications , that were given patient at the outpatient surgery center , were reviewed with patient. Patient to follow-up with Dr. Oshea as outpatient. FINAL DIAGNOSES: Postoperative pain Status post uterine artery embolization Uterine fibroids Leukocytosis DISCHARGE MEDICATIONS: See Medication Reconciliation list. DISCHARGE INSTRUCTIONS: Patient was discharged home. Patient to follow-up with Dr. Oshea as directed. Perla Clayton NP Oct 16, 2019 11:12
== END 2019-10-14 10:25 | disposition home or self-care (01) | DRG 948 ==
LOC: EDBEDREQ 22:38 → EMR 22:45 → 3E 22:48 → EDBEDREQ 22:56
DX: G89.18 Other acute postprocedural pain (principal); D25.9 Leiomyoma of uterus, unspecified
CPT/HCPCS: 36415; 80053; 81001; 81025; 83690; 85025; 96361; 96374; 96375; 99285; C9399; J2405; J7030